=== PATIENT | male | born 1990 | race Caucasian/White ===

== ENCOUNTER 2019-02-24 13:35 | Emergency (ER) | payer OTHER ==
[2019-02-24] MEDS ORDERED: DIPH/PERTUSS(ACELL)/TETANUS VAC/PF 0.5 ML SYR (>=10YO) IM ONE (14:37)
[2019-02-24] MEDS ORDERED: HYDROCODONE/ACETAMINOPHEN 5-325 MG TABLET PO ONE (14:37)
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
== END 2019-02-24 15:56 | disposition home or self-care (01) ==
LOC: ER 13:35
DX: S40.812A Abrasion of left upper arm, initial encounter (principal); S63.602A Unspecified sprain of left thumb, initial encounter; V89.2XXA Person injured in unspecified motor-vehicle accident, traffic, initial encounter; Z23 Encounter for immunization
CPT/HCPCS: 90471; 90715; 99283